=== PATIENT | female | born 1965 | race Caucasian/White ===

== ENCOUNTER 2016-12-28 05:50 | Outpatient (CLI) | payer OTHER ==
[~2016-12-28] VITALS: Ht 170.2 cm; Wt 93.4 kg
--- NOTE | ~2016-12-28 | CATH ---
Cardiac Diagnostic Report Demographics Patient Name TRUONG Osman Gender Female Date of 1965 Age 51 year(s) Patient Number [id number] Date of Study 12/28/2016 Visit Number [id number] Room Number G6399 [place] [id number] Ht 170 cm Wt 93.[address] [facility] Primary Physician Physician Mary RENE Performing Yerra Secondary Physician Physician Edgar Diagnostic Jonrra Assisting Physician Physician Edgar Interventional Physician Carpet Sewer Physician Findings and Conclusions Diagnostic Findings and Conclusion Rt dominant L Main: No significant epicardial disease LAD: Mid 30% focal stenosis L Cx: No significant epicardial disease RCA: No significant epicardial disease Diagnostic Recommendations Medical therapy smoking cessation Procedure Description The patient was brought to the diagnostic cardiac catheterization-EP laboratory in the fasting, non-sedated state. Informed consent was obtained in the written and verbal form after the risks and benefits were explained. The patient had no further questions and agreed to proceed. The planned puncture-incision site(s) were shaved and prepped with ChloraPrep and draped in the usual sterile manner. Conscious sedation, supplemental oxygen, and pain control medications were delivered by a registered nurse under physician guidance. Surface ECG rhythm, blood pressure measurement, and pulse oximetry were monitored throughout the procedure. Arterial access. The access site on right wrist was infiltrated with lidocaine. The vessel was entered with the Seldinger technique. A sheath was advanced into the vessel and used for catheter placement. Selective left coronary angiography. A catheter was advanced into the left coronary vessel ostium under Fluoroscopic guidance. Contrast was injected by hand. Images were obtained in multiple projections. Selective right coronary angiography. A catheter was advanced into the right coronary vessel ostium under fluoroscopic guidance. Contrast was injected by hand. Images were obtained in multiple projections. Arterial artery hemostasis was achieved. The patient was transferred to a regular nursing floor via cart accompanied by a nurse. The patient left the laboratory in stable condition. Diagnostic Cath Status: Elective Procedure Procedure Type Diagnostic procedure:Angiography:, Coronary Angios Indications: Abnormal cardiolyte, Bradycardia, Angina, Fatigue and Shortness of breath. The procedure was explained in detail to the patient. Risks, complications and alternative treatments were reviewed. Written consent was obtained. Medications Reviewed with Patient prior to Procedure. Angiographic Findings Dominance: Right Cardiac Arteries and Lesion Findings LMCA: Normal (0% Stenosis). LAD: Abnormal. Mid LAD 30% focal stensosis Lesion on Mid LAD: Mid subsection.30% stenosis . LCx: Normal (0% Stenosis). RCA: Normal (0% Stenosis). Coronary Tree Procedure Data Procedure Date Date: 12/28/2016Start: 08:16 AMEnd: 09:10 AM Entry Locations - Retrograde Percutaneous access was performed through the Right Radial artery (Primary location). A 6 Fr sheath was inserted. Hemostasis was successfully obtained using Mechanical Compression. Entry Comments: sheath was exchanged because could not aspirate thru original sheath. Closure Comments: r band with 10 cc air in band deployed by galilea. Procedure Medications Order and Administration + + + + + !Time !Medication !Dosage !Route ! + + + + + 12/28/2016 08:12 AM !Versed !1 mg !I.V. ! + + + + + 12/28/2016 08:12 AM !Fentanyl !25 mcg !I.V. ! + + + + + 12/28/2016 08:24 AM !Fentanyl !25 mcg !I.V. ! + + + + + !12/28/2016 08:33 AM !Radial Nitroglycerin !100 mcg !I.A. ! + + + + + !12/28/2016 08:33 AM !0.9% NaCl !100 ml !I.V. bolus ! + + + + + !12/28/2016 08:41 AM !Heparin (ACC_3) !4000 units !I.V. bolus ! + + + + + !12/28/2016 08:44 AM !Fentanyl !25 mcg !I.V. ! + + + + + !12/28/2016 08:48 AM !Versed !1 mg !I.V. ! + + + + + !12/28/2016 08:49 AM !Radial Nitroglycerin !100 mcg !I.A. ! + + + + + !12/28/2016 08:50 AM !Radial Verapamil !1.25 mg !I.A. ! + + + + + Devices Used - A5 Fr. BS JR 4 Diag. Catheterwas used for:Right coronary angiography. - A5 Fr. BS JL 3.5 Diag. Catheterwas used for:Left coronary angiography. Contrast Material - Isovue 35998 ml Fluoroscopy Time: Diagnostic: 5:24 minutes. Total: 5:24 minutes. Fluoroscopy Dose: Diagnostic: 599 mGy. Total: 599 mGy. Estimated Blood Loss: 10 ml. Medical History Allergies - Contrast. - Penicillin. - Sulfa. - Other:(oxycodone). Risk Factors The patient risk factors include:obesity, physical activity, hypertension, family history of premature CAD, chronic lung disease, last creatinine: 0.6 mg/dl, creatinine clearance: 163.56 ml/min and Current/Recent(w/in 1 year) tobacco use. Admission Data Admission Date: 12/28/2016 Admission Time: 05:50 AM Insurance Payors: Private health insurance. Admission Medications + +------+------+ + + + + !Medication !Dosage!Times !Last !Last !Administered !Comments ! ! ! !Per !Delivery !Delivery ! ! ! ! ! !Day !Date !Time ! ! ! + +------+------+ + + + + !Aspirin ! ! ! ! ! ! ! !(any) ! ! ! ! ! ! ! + +------+------+ + + + + !Beta Deny! ! ! ! ! ! ! !(any) ! ! ! ! ! ! ! + +------+------+ + + + + !Nitrates (iv! ! ! ! ! ! ! !or buccal) ! ! ! ! ! ! ! + +------+------+ + + + + Clinical Evaluation Leading to Procedure - The patient's CAD presentation was assessed as: Unstable angina. - The patient's anginal syndrome during the past two weeks was assessed as: Class IV according to the [place] Cardiovascular [employer] Classification System (CCS). Anti-anginal medications were prescribed during the past two weeks. The medications are: Beta Blockers and Long Acting Nitrates. [facility] Ventriculography Findings stress positive with mild to moderate anterior wall defect LV function assessed as:Normal. Ejection Fraction - 12/21/2016 - Method: Radionucleotide. EF%: 64. Hemodynamics Condition: Rest O2 Consumption: Estimated: 186.63Heart Rate: 53 bpm Pressures (mmHg) +-----+ + !Site !Pressure ! +-----+ + !AO !118/70 (91) ! +-----+ + !AO !126/75 (97) ! +-----+ + Shunts Oxygen Values O2 Capacity 202.64 O2 Consumption 186.63 Signatures dtt: EDGAR HAYNES dtd: 12/28/16 0816 Physician Self Edit
[~2016-12-28 05:50] MED LIST: BENADRYL25 MG PO; EXCEDRIN MIGRA1 EACH PO; IMDUR30 MG PO; LOPRESSOR25 MG PO; NORCO 5-325 MG1 TAB PO; PROVENTIL OR V6.7 GM INH; THERAGRAN-M1 TAB PO; ULTRAM50 MG PO; VITAMIN B-12500 MCG PO; VITAMIN D1000 UNIT PO; VITAMIN D31000 UNI2 PO
[2016-12-28 06:26] LABS: BASOPHIL # 0.1 K/uL (0.0-0.2); BASOPHIL % 0.9 %; EOSINOPHIL # 0.2 K/uL (0.0-0.5); EOSINOPHIL % 1.9 %; HEMATOCRIT 45.9 % (33.0-46.0); HEMOGLOBIN 14.9 g/dL (10.0-15.0); IMMATURE GRANULOCYTE % 0.4 %; LYMPHOCYTE % 28.4 %; MCH 28.8 pg (27.0-34.0); MCHC 32.5 gm/dL (32.0-36.5); MCV 88.8 fl (83.0-98.0); MONOCYTE # 0.8 K/uL (0.0-1.0); MONOCYTE % 7.1 %; MPV 9.8 fl (9.4-12.4); NEUTROPHIL # (ANC) 6.5 K/uL (1.8-7.8); NEUTROPHIL % 61.3 %; NRBC % 0 /100WBC (0-0.00); PLATELET COUNT 298 K/uL (150-450); RBC 5.17 M/uL (3.50-5.50); RDW-CV 13.5 % (11.9-14.6); WBC 10.6 K/uL (4.0-11.0)
[2016-12-28 06:34] LABS: PROTIME 10.1 SECONDS (9.6-11.1); PTT 27 SECONDS (25-32)
[2016-12-28] MEDS ORDERED: ASPIRIN LO-DOSE81 MG PO (06:39)
[2016-12-28 06:41] LABS: ALBUMIN 3.4 gm/dL (3.5-5.0); ALK PHOS 81 IU/L (33-138); ALT 23 IU/L (12-78); ANION GAP 11.3 (10.0-19.0); AST 14 IU/L (10-40); BLOOD UREA NITROGEN 18 mg/dL (6-24); CALCIUM 8.7 mg/dL (8.5-10.5); CHLORIDE 106 mMol/L (96-110); CO2 28 mMol/L (22-32); CREATININE 0.6 mg/dL (0.5-1.1); POTASSIUM 4.3 mMol/L (3.7-5.1); SODIUM 141 mMol/L (135-145); TOTAL BILIRUBIN 0.3 mg/dL (0.0-1.5); TOTAL PROTEIN 7.2 g/dL (6.0-8.4)
[2016-12-28 06:44] LABS: ESTIMATED GFR (MDRD EQUATION) > 60
[2016-12-28] MEDS ORDERED: EFFEXOR75 MG PO (06:46)
== END 2016-12-28 13:15 | disposition disaster alternative care site (69) ==
LOC: GPCU 05:50 → GPOC 05:50
PROVIDERS: Internal Medicine Interventional Cardiology
PROC: B2111ZZ Fluoroscopy of Multiple Coronary Arteries using Low Osmolar Contrast (ICD-10-PCS; principal; 2016-12-28)
DX: I25.10 Atherosclerotic heart disease of native coronary artery without angina pectoris (principal); I10 Essential (primary) hypertension; R07.9 Chest pain, unspecified; E66.8 Other obesity; F17.210 Nicotine dependence, cigarettes, uncomplicated; I73.9 Peripheral vascular disease, unspecified; J45.909 Unspecified asthma, uncomplicated; G40.909 Epilepsy, unspecified, not intractable, without status epilepticus; K58.9 Irritable bowel syndrome, unspecified; G43.909 Migraine, unspecified, not intractable, without status migrainosus; Z86.718 Personal history of other venous thrombosis and embolism; Z86.711 Personal history of pulmonary embolism; Z79.82 Long term (current) use of aspirin; Z79.899 Other long term (current) drug therapy; Z79.891 Long term (current) use of opiate analgesic; Z82.49 Family history of ischemic heart disease and other diseases of the circulatory system
CPT/HCPCS: J1200; J1644; J2001; J2250; J2930; J3010; J7030

== ENCOUNTER → 2017-01-09 | Outpatient (CLI) | payer OTHER ==
[~2017-01-09] MED LIST changes: +ASPIRIN LO-DOSE81 MG PO; +EFFEXOR75 MG PO
[2017-01-09 14:28] LABS: ANION GAP 8.7 (10.0-19.0); BLOOD UREA NITROGEN 16 mg/dL (6-24); CALCIUM 8.8 mg/dL (8.5-10.5); CHLORIDE 110 mMol/L (96-110); CO2 27 mMol/L (22-32); CREATININE 0.5 mg/dL (0.5-1.1); ESTIMATED GFR (MDRD EQUATION) > 60; POTASSIUM 3.7 mMol/L (3.7-5.1); SODIUM 142 mMol/L (135-145)
== END | disposition disaster alternative care site (69) ==
LOC: LNHI 14:14
PROVIDERS: Internal Medicine Interventional Cardiology
DX: R07.9 Chest pain, unspecified (principal); R42 Dizziness and giddiness